=== PATIENT | male | born 1960 | race Caucasian/White ===

== ENCOUNTER 2024-02-11 11:23 | Outpatient (AMB) | payer BC, SELFPAY ==
[2024-02-11 11:37] VITALS: BP 120/70; PULSE 74; BMI 41.4
--- NOTE | 2024-02-11 11:37 | MHC.OFFVIS ---
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 [facility] Sheep Farmer Required: Yes Sheep Farmer Name: richie/son Accompanied by: Son Allergies No Known Allergies Allergy (Verified 02/11/24 11:40) Medication List - Last Reconciled 02/11/24 by Fernando Joseph MD aspirin 81 mg PO DAILY atorvastatin 20 mg PO DAILY cholecalciferol (vitamin D3) 250 mcg PO DAILY ciprofloxacin-dexamethasone 0.3-0.1 % drps otic (ears) coQ10 (ubiquinol) (Qunol Hoang CoQ10) 200 mg PO DAILY lisinopril 20 mg PO DAILY rosuvastatin 10 mg PO BEDTIME sod sulf-pot chloride-mag sulf 1.479-0.188- 0.225 gram (Sutab) PO PER PKG DIR tadalafil 20 mg PO DAILY HPI Comments Details: 63-year-old gentleman who is here for 1st office visit. He works as a business banker and is from [place]. He had assessment done in [place] which led to diagnosis of bicuspid aortic valve stenosis by his report. He is saying that he had cardiac catheterization done which showed no coronary disease. Also had a CT scan performed and he was advised to have aortic valve replacement surgically rather than transcatheter aortic valve replacement. He is here for 2nd opinion. He said when he was in [place] and was going up 5 flights of stairs with groceries he noticed some fatigue and tiredness. He is denying shortness of breath. He also has no dyspnea in his day-to-day life, no chest discomfort or dizziness. He has history of hypertension and hyperlipidemia and is currently taking lisinopril and rosuvastatin. Blood pressure is well controlled. We requested some records but we have not received any from [place] currently. He has some records on his portal which she will share with us. He is saying last echocardiogram was a year ago. [facility] Family History Mother High blood pressure Social History (Updated 02/11/24 @ 11:47 by Sindy Bahena CMA) Alcohol intake: never Patient Tobacco Use Status: Never used Tobacco Review of Systems Const Denies chills, Denies fatigue, Denies fever(s), Denies frequent falls, Denies weakness, Denies weight gain and Denies weight loss ENT Denies dizziness Card Denies chest pain, Denies leg edema, Denies lightheadedness, Denies palpitations, Denies dyspnea, Denies dyspnea on exertion and Denies orthopnea Resp Denies cough, Denies dyspnea and Denies dyspnea on exertion GI Denies bloating and Denies change in bowel habits Musc Denies muscle weakness, Denies numbness and Denies tingling Neuro Denies dizziness, Denies frequent falls, Denies numbness, Denies tingling and Denies weakness Endo Denies fatigue and Denies palpitations Physical Exam Vital Signs: Last Vital Signs Pulse 74 02/11/24 11:37 BP 120/70 02/11/24 11:37 BMI result Body Mass Index 41.4 GENERAL APPEARANCE: in no acute distress, pleasant. NECK: Aortic stenosis murmur radiating to carotids, no jugular venous distention. Carotid upstroke is normal. SKIN: no suspicious lesions, warm and dry. HEART: Ejection systolic murmur with preserved 2nd heart sound, regular rate and rhythm. LUNGS: clear to auscultation bilaterally. ABDOMEN: soft, nontender. EXTREMITIES: no edema. PERIPHERAL PULSES: equal. NEUROLOGIC: No gross deficits, AAO X 3 Office Procedures EKG Details: Sinus rhythm 74 beats per minute, normal axis, normal ECG, QTC 424 milliseconds. [id number], Complete Assessment & Plan Assessment & Plan (1) Aortic stenosis: Code(s): I35.0 - Nonrheumatic aortic (valve) stenosis Category: Medical Plan Pleasant 63 year gentleman with background of hypertension hyperlipidemia who is here for 1st office visit. He had workup done in [place] where he was told that he has bicuspid aortic valve and has severe aortic valve stenosis. He was advised to undergo surgery. He is said to have 2nd opinion about surgery versus transcatheter aortic valve replacement. Clinically he is denying significant symptoms currently. Only symptoms were when he was in [place] and was going up 5 flights of stairs with groceries in his hands. His day-to-day life he lifts heavy weights and is denying any symptoms with them. In particular no chest pain, shortness of breath or dizziness/syncope. In certain circumstances valve replacement is indicated even in the absence of symptoms specially if there are significantly high gradients across aortic valve-mean gradient 50 mm Hg or more. I need to review his old testing. He is saying his echocardiogram was a year ago so we will schedule a repeat echocardiogram to assess the gradients, LV function and ascending aorta size. He is saying that he was not told that he has any aneurysmal change previously. I have explained to him that bicuspid aortic valve carries high risk for stroke and there is risk of aortic annular injury. He is young and quite robust and probably will do well with aortic valve surgery if indicated based on the testing he has done. I will review his records and also review then new echocardiogram and will get back to him. Thank you for allowing me to participate in the care of your patient. Please feel free to contact me if you have any questions. Orders: Orders CA echo transthoracic complete Today I35.0 - Nonrheumatic aortic (valve) stenosis Coding Level of Care Code New Pt Level 4 (41562) Diagnoses Aortic stenosis I35.0 CPT Codes EKG - CPT: 57874-[id number], Complete ([id number])
== END 2024-02-11 12:46 | disposition home or self-care (01) ==
PROVIDERS: Visit Provider Internal Medicine Cardiovascular Disease
DX: I35.0 Nonrheumatic aortic (valve) stenosis (principal); I35.8 Other nonrheumatic aortic valve disorders
CPT/HCPCS: 93010; 93306; 99204

== ENCOUNTER → 2024-02-11 11:23 | Outpatient (BNVA) | payer BC, SELFPAY | PROVIDERS: Visit Provider Internal Medicine Cardiovascular Disease | DX: I35.0 Nonrheumatic aortic (valve) stenosis (principal) | CPT/HCPCS: 93005 ==

== ENCOUNTER → 2024-02-11 12:48 | Outpatient (REF) | payer BC, SELFPAY ==
--- NOTE | 2024-02-11 12:53 | CA_ITS ---
Transthoracic Echocardiogram Patient (Last, First, Middle): Bar Mccurdy, Gender: Male Date of : 1960 Age: 63 Procedure Date: 02/11/2024 Procedure Type: Transthoracic Echocardiogram Location: OP Height: 170.18 cm Weight: 118.84 kg BSA: 2.27 m2 Heart Rate: bpm BP: 118 / 70 mmHg House Cleaner Supervisor: TO Referring MD: Fernando Joseph MD Heat Set Operator: Fernando Joseph MD Symptoms: I35.0 - Nonrheumatic aortic (valve) stenosis Study Quality: Fair/Contrast Conclusions: - Normal left ventricular cavity size. There is mildly increased left ventricular wall thickness. The left ventricular systolic function is hyperdynamic. The visually estimated ejection fraction is >70%. - There is severe aortic valve stenosis. - Cannot rule out bicuspid aortic valve. - There is mild dilatation of the ascending aorta measuring 3.40 cm. Findings Procedure Information Contrast agent, definity, is being given per protocol without apparent complications. Left Ventricle Normal left ventricular cavity size. There is mildly increased left ventricular wall thickness. The left ventricular systolic function is hyperdynamic. The visually estimated ejection fraction is >70%. There is no evidence of regional wall motion abnormalities. Abnormal diastolic function is noted. Spectral Doppler is indicative of a pseudonormal filling pattern. E/E prime ratio is between 8 and 15 consistent with indeterminate filling pressures. Right Ventricle Normal right ventricular cavity size and systolic function. Atria The left atrium is normal in size. The right atrium is normal in size. Aortic Valve There is severe calcification of the aortic valve. There is severe aortic valve stenosis. The peak aortic velocity is 4.03 m/s. The mean gradient is 40 mmHg. The aortic valve area is 0.80 cm2. There is trace (trivial) aortic valve regurgitation. Cannot rule out bicuspid aortic valve. Dimensionless index 0.19. Mitral Valve Normal mitral valve structure and function. There is no mitral valve regurgitation. There is no mitral valve stenosis. Pulmonic Valve The pulmonic valve is normal. There is trace pulmonic valve regurgitation. Tricuspid Valve Normal tricuspid valve structure and function. There is no tricuspid valve regurgitation. Tricuspid regurgitation envelope is inadequate for calculation of right ventricular systolic pressure. Normal right atrial pressure. Great Vessels There is mild dilatation of the ascending aorta measuring 3.40 cm. The visualized portions of the pulmonary artery and branches are normal. Venous The inferior vena cava is normal in size and collapses greater than 50% with inspiration. Pericardium/Pleural There is no evidence of pericardial effusion. Prior Study Comparison No prior study available for comparison. Measurements 2D Linear Measurements IVSd: 1.31 0.6-0.9/0.6-1.0 cm LVIDd: 4.37 3.9-5.3/4.2-5.9 cm LVIDd Index: 1.93 2.4-3.2/2.2-3.1 cm/m2 LVIDs: 3.02 2.0-3.6 cm LVPWd: 1.08 0.7-1.1 cm LA Diam: 3.90 2.7-3.8/3.0-4.0 cm LAIDs Index: 1.72 1.5-2.3 cm/m2 LV Mass: 234.48 67-162/88-224 g LV Mass Index: 103.30 43-95/49-115 g/m2 LVOT Diam: 2.20 3.0+(-)1.3 cm 2D Systolic Function EF 4C: 58.80 >55% EF 2C: 62.90 >55% EF BiP: 60.70 >55% Mitral Valve MV VTI: 0.28 MV Pk Hugo: 0.93 MV Mn Hugo: 0.54 MV Pk Grad: 3.00 MV Mn Grad: 1.00 MV Pk E: 0.87 MV PK A: 0.65 MV Decel Time: 220.00 E/A: 1.30 E'Lateral: 7.40 E'Medial: 6.42 E/E' Med: 13.50 E/E' Lat: 11.70 PHT: 65.00 MVA PHT: 3.38 MVA Continuity: 3.01 Decel Powell: 3.93 Aortic Valve AoV Pk Hugo: 4.03 AoV Mn Hugo: 3.00 AoV VTI: 1.03 AoV Pk Grad: 65.00 Aov Mn Grad: 40.00 JEAN CLAUDE Cont.VTI: 0.80 LVOT LVOT Pk Hugo: 0.75 LVOT Mn Hugo: 0.55 LVOT VTI: 0.22 LVOT Pk Grad: 2.00 LVOT Mn Grad: 1.00 LVOT Diam: 2.20 LVOT Area: 3.80 Diastolic Function MV Pk E: 0.87 MV Pk A: 0.65 E/A: 1.30 E'Medial: 6.42 E/E' Med: 13.50 E' Laterial: 7.40 E/E' Lat: 11.70 Right Ventricle TAPSE (mm): 22.60 TVS' Hugo: 10.00 Great Vessels Aorta Sinus of Valsalva: 3.46 2.0-3.[address] Ridge: 2.67 1.7-3.4 cm Ao Asc: 3.40 2.1-3.4 cm Ao Arch: 3.10 Updated in Other Vendor System with Status of Final Fernando Joseph MD electronically signed on 02/11/2024 4:08:11 PM with status of Final
== END ==
LOC: HO.CARD 12:48
PROVIDERS: Visit Provider Internal Medicine Cardiovascular Disease
DX: I35.0 Nonrheumatic aortic (valve) stenosis (principal)
CPT/HCPCS: 93306; Q9957

== ENCOUNTER → 2024-03-01 10:09 | Outpatient (REF) | payer BC, SELFPAY ==
--- NOTE | 2024-03-01 10:14 | CA_ITS ---
Acquisition Time: 2024-03-01 10:34:17 Total Exercise Time: 00:04:00 Test Indications: SOB Medications: Protocol: BRANT Max HR: 137 BPM 86% of Pred: 158 BPM Max BP: 158/074 mmHG Max Work Load: 5.8 METS Exercise stress test with exercise 4 min of Brant protocol, achieving 86% MPHR, with 6/10 anterior chest pressure, without arrythmia, with drop in BP from 130/74 just prior to exercise down to 120/70 during exercise and then 158/74 in early recovery, with EKG changes inferolateral leads suggestive of ischemia: downsloping ST/T inversions inferior, V4-V6 without ST depression. In recovery his chest discomfort resolved quickly. Test reviewed with Dr Joseph. Referred By: Fernando Joseph Overread By: FLORES ALTAMIRANO
== END ==
LOC: HO.CARD 10:09
PROVIDERS: Visit Provider Internal Medicine Cardiovascular Disease
DX: I35.0 Nonrheumatic aortic (valve) stenosis (principal)
CPT/HCPCS: 93017

== ENCOUNTER → 2024-03-01 10:14 | Outpatient (BNV) | payer BC, SELFPAY | PROVIDERS: Visit Provider Nurse Practitioner Family | DX: R06.02 Shortness of breath (principal); R07.9 Chest pain, unspecified | CPT/HCPCS: 93016; 93018 ==